=== PATIENT | male | born 1940 | race Caucasian/White ===

== ENCOUNTER 2020-01-15 16:12 | Observation (INO) | payer MEDICARE, OTHER ==
--- NOTE | 2020-01-15 16:50 | RAD ---
Chest AP view INDICATION: Dyspnea COMPARISON: None FINDINGS: Lungs: There is mild interstitial and airspace opacity involving the left lung base. There is mild b ronchiectasis seen within this region. Findings are suspicious for focal region of scarring. No consolidation is evident. Cardiac silhouette: The cardiomediastinal silhouette appears within normal limits. Pulmonary vasculature: Normal Pleural spaces: No pleural effusion or pneumothorax is demonstrated. Upper abdomen: No abnormality seen. Osseous structures: No acute osseous abnormality. Additional findings: None. IMPRESSION: No acute cardiopulmonary abnormality.
[2020-01-15 16:56] LABS: #Lymphocytes 0.7 thou/uL (1.20-3.40); #Monocytes 0.5 thou/uL (0.11-0.59); #Neutrophils 2.5 thou/uL (1.40-6.50); %Basophils 0.8 % (0.0-1.0); %Eosinophils 0.1 % (0.0-10.0); %Lymphocytes 17.9 % (21.0-51.0); %Monocytes 13.7 % (0.0-10.0); %Neutrophils 67.5 % (42.0-75.0); Hemoglobin 13.7 g/dL (14.0-18.0); Mean Platelet Volume 7.5 fL (7.4-10.4); Platelet Count 173 thou/uL (130-400); RBC Distribution Width 11.7 % (11.5-14.5); Red Blood Cell (RBC) Count 4.27 mill/uL (4.70-6.10); White Blood Cell (WBC) Count 3.7 thou/uL (4.8-10.8)
[2020-01-15 17:23] LABS: ALT (SGPT) 25 U/L (8-55); AST (SGOT) 42 U/L (5-34); Albumin 3.3 g/dL (3.4-4.8); Alkaline Phosphatase 57 U/L (40-110); Anion Gap 13 mmol/L (10-20); BUN (Urea Nitrogen) 18 mg/dL (8.4-25.7); Bilirubin, Total 0.3 mg/dL (0.2-1.2); Calc. Creatinine Clearance 0 mL/min (70-130); Carbon Dioxide 21 mmol/L (23-31); Chloride 101 mmol/L (98-107); Estimated GFR-MDRD 56; Globulin 2.1 g/dL (2.4-3.5); Glucose 98 mg/dL (83-110); Potassium 4.2 mmol/L (3.5-5.1); Protein, Total 5.4 g/dL (5.8-8.1); Sodium 131 mmol/L (136-145)
[2020-01-15 17:37] LABS: CKMB 3.7 ng/mL (0-6.6)
--- NOTE | 2020-01-15 18:33 | PDOC.FPRHP ---
- History of Present Illness Chief Complaint: SOB History of Present Illness: 79 yo M with history of COPD and recent covid exposure complaining of SOB, dyspnea on exertion, and fatigue for several days. Patient reports a fever of 100.8 at home. Patient also complains of nonproductive cough which is normal for him due to his COPD. Of note, patient's recently and the is tomorrow. Denies CP and any history of heart, kidney, or liver disease. ED Course: was found to have a troponin of 0.036 - Allergies/Adverse Reactions Allergies Allergy/AdvReac Type Severity Reaction Status Date / Time bacitracin Allergy Unverified 01/15/20 19:19 [From Triple Antibiotic] neomycin Allergy Unverified 01/15/20 19:19 [From Triple Antibiotic] polymyxin B Allergy Unverified 01/15/20 19:19 [From Triple Antibiotic] - Home Medications Medication Instructions Recorded Confirmed Type Escitalopram Oxalate [Lexapro] 10 mg PO DAILY 01/15/20 01/15/20 History Tamsulosin HCl 0.4 mg PO DAILY 01/15/20 01/15/20 History - History PMHx: COPD, BPH PSHx: None Social: previous smoker, quit 30 years ago. Smoked 2PPD for 30 years. Denies alcohol or drug use. - Review of Systems General: reports: fever/chills ENT: denies: nasal congestion Respiratory: reports: cough, shortness of breath. denies: congestion Cardiovascular: reports: chest pain. denies: palpitation, edema Gastrointestinal: denies: abdominal pain Genitourinary: denies: dysuria Musculoskeletal: denies: swelling Neurological: reports: weakness Psychological: reports: depression - Vital signs BP: 120/67 HR: 78 RR: 17 Tmax: 99.3 Pox: 97% on RA Wt: 66kg - Physical Exam Constitutional: NAD, awake, alert and oriented HEENT: normocephalic and atraumatic, EOMI, grossly normal vision, grossly normal hearing Neck: supple, FROM Heart: RRR, no murmurs/rubs/gallops, no edema -Heart: distant heart sounds Lungs: CTAB, no respiratory distress, good air movement, no rales/rhonchi, no wheezing, no retractions Abdomen: soft, non-tender Musculoskeletal: normal structure, normal tone, ROM grossly normal Neurological: no focal deficit Psychiatric: good judgment and insight, intact recent and remote memory FMR H&P: Results - Labs Result Diagrams: 01/15/20 16:47 01/15/20 16:47 Lab results: WBC 3.7 thou/uL (4.8-10.8) L 01/15/20 16:47 Hgb 13.7 g/dL (14.0-18.0) L 01/15/20 16:47 Hct 40.1 % (42.0-52.0) L 01/15/20 16:47 MCV 94.0 fL (78.0-98.0) 01/15/20 16:47 Plt Count 173 thou/uL (130-400) 01/15/20 16:47 Neutrophils % 67.5 % (42.0-75.0) 01/15/20 16:47 Sodium 131 mmol/L (136-145) L 01/15/20 16:47 Potassium 4.2 mmol/L (3.5-5.1) 01/15/20 16:47 Chloride 101 mmol/L (98-107) 01/15/20 16:47 Carbon Dioxide 21 mmol/L (23-31) L 01/15/20 16:47 BUN 18 mg/dL (8.4-25.7) 01/15/20 16:47 Creatinine 1.23 mg/dL (0.7-1.3) 01/15/20 16:47 Glucose 98 mg/dL (83-110) 01/15/20 16:47 Calcium 8.0 mg/dL (7.8-10.44) 01/15/20 16:47 Total Bilirubin 0.3 mg/dL (0.2-1.2) 01/15/20 16:47 AST 42 U/L (5-34) H 01/15/20 16:47 ALT 25 U/L (8-55) 01/15/20 16:47 Alkaline Phosphatase 57 U/L (40-110) 01/15/20 16:47 CK-MB (CK-2) 3.7 ng/mL (0-6.6) 01/15/20 16:47 B-Natriuretic Peptide 266.3 pg/mL (0-100) H 01/15/20 16:47 Serum Total Protein 5.4 g/dL (5.8-8.1) L 01/15/20 16:47 Albumin 3.3 g/dL (3.4-4.8) L 01/15/20 16:47 - EKG Interpretation EKG: sinus rhythm - Radiology Interpretation Chest x-ray Status: report reviewed by me (no acute cardiopulmonary process) FMR H&P: A/P - Plan 79 yo M with history of COPD and recent covid exposure complaining of SOB, dyspnea on exertion, and fatigue Elevated troponin -trop 0.036 -EKG sinus rhythm -CXR normal -trend trops -consider stress in AM if patient is covid negative COVID PUI -Known exposure. SOB, fatigue, dyspnea on exertion -COVID test pending -Mg, Phos, Ddimer, CRP, INR, PTT, fibrinogen, ferritin, LDH pending -BCx pending -Urine antigens pending Leukopenia -WBC 3.7 -likely due to covid COPD -Aware, lungs clear on admission -Will med rec inhalers BPH -Aware -Continue home meds Depression - recently and is on 01/14 -Continue home meds DVT PPx: lovenox Diet: HH, NPO at midnight Code: Full [facility]CP: [facility] Dispo: eLOS<48hours pending trending of troponins and results of covid test FMR H&P: Upper Level - Plan Date/Time: 01/15/201832 Arnold Martinez DO, have evaluated this patient and agree with findings/plan as outlined by materials intern resident. Pertinent changes/additions are listed here. 79 yo m w pmhx sig for copd presents with fever, fatigue and sob for 2 days he reports positive covid contacts, denies a change in his chronic cough, or increased sputum production. he has not had any chest pain and denies a hx of heart disease. in the ED he was noted to have an indeterminate trop and elevated bnp, ekg wnl, cxr neg for volume overload or infiltrates. vss, pe sig for distant heart sounds, lungs ctab, abd nttp, no EVELYN. we will admit to tele obs for further monitoring. acs ro w. concern for covid pna, trend trop and consider stress/echo if covid neg. if positive he is not requiring O2 and will most likely be able to be dc'd home to quarantine. will obtain routine covid labs, avoid treating at this time as he is not requiring admission for covid related complications. Addendum - Attending - Attending Attestation Date/Time: 01/15/20 [id number] I personally evaluated the patient and discussed the management with Dr. Hurtado/Reece. I agree with the History, Examination, Assessment and Plan documented above with any addition or exceptions noted below. Obs for covid exposure with early symptoms and indeterminate troponin.
[2020-01-15] MEDS ORDERED: Acetaminophen 325 MG TAB PO PRN (19:02)
[2020-01-15] MEDS ORDERED: Acetaminophen 650 MG Suppository PR PRN (19:02)
[2020-01-15 19:50] LABS: PTT 31.6 sec (22.9-36.1)
[2020-01-15 19:51] LABS: D-Dimer Test 0.46 *mcg/mL (0.27-0.43)
[2020-01-15 20:04] LABS: CRP (Inflammatory) 5.35 mg/dL (= or < 0.5); Cardiac Risk 3.5 (Less than 4.5); Cholesterol 134 mg/dl (< 200 Desired); HDL Cholesterol 38 mg/dL (>60 Neg Risk); LDL Cholesterol, Calculated 87 mg/dL; Magnesium 1.7 mg/dL (1.6-2.6); Phosphorus 3.1 mg/dL (2.3-4.7); Triglycerides 44 mg/dL (Less than 150)
[2020-01-15 20:20] LABS: Troponin I 0.029 ng/mL (< 0.028)
[2020-01-15] MEDS ORDERED: Enoxaparin Sodium 40 MG/0.4 ML SYRINGE SC SCH (21:00)
[2020-01-15 22:38] LABS: SARS-CoV-2 NAA Rapid Test DETECTED (NotDetected)
[2020-01-15 23:38] VITALS: BMI 23.8
[2020-01-15] MEDS ORDERED: Dexamethasone 4 mg/ml Vial SLOW IVP SCH (23:45)
[2020-01-15] MEDS ORDERED: Tamsulosin HCl 0.4 MG CAP PO SCH (23:59)
[2020-01-16 00:03] LABS: Troponin I 0.023 ng/mL (< 0.028)
[2020-01-16 02:11] LABS: Legionella Urinary Ag Negative (Negative); Strep pneumo Urine Ag NEGATIVE (NEGATIVE)
[2020-01-16 05:10] LABS: #Lymphocytes 0.4 thou/uL (1.20-3.40); #Monocytes 0.1 thou/uL (0.11-0.59); %Basophils 0.6 % (0.0-1.0); %Eosinophils 0.4 % (0.0-10.0); %Lymphocytes 16.7 % (21.0-51.0); %Monocytes 4.5 % (0.0-10.0); %Neutrophils 77.9 % (42.0-75.0); Hemoglobin 13.3 g/dL (14.0-18.0); Mean Corpuscular HGB CONC 35.6 g/dL (32.0-36.0); Mean Corpuscular Hemoglobin 33.6 pg (27.0-31.0); Mean Corpuscular Volume 94.3 fL (78.0-98.0); Platelet Count 162 thou/uL (130-400); RBC Distribution Width 11.6 % (11.5-14.5); Red Blood Cell (RBC) Count 3.97 mill/uL (4.70-6.10); White Blood Cell (WBC) Count 2.5 thou/uL (4.8-10.8)
[2020-01-16 05:32] LABS: Anion Gap 13 mmol/L (10-20); BUN (Urea Nitrogen) 15 mg/dL (8.4-25.7); CRP (Inflammatory) 4.59 mg/dL (= or < 0.5); Calc. Creatinine Clearance 59 mL/min (70-130); Calcium 8.1 mg/dL (7.8-10.44); Carbon Dioxide 22 mmol/L (23-31); Chloride 101 mmol/L (98-107); Estimated GFR-MDRD 69; Glucose 119 mg/dL (83-110); Magnesium 1.8 mg/dL (1.6-2.6); Phosphorus 2.9 mg/dL (2.3-4.7); Potassium 4.2 mmol/L (3.5-5.1); Sodium 132 mmol/L (136-145)
--- NOTE | 2020-01-16 06:14 | PDOC.FM ---
- Subjective Subjective: Patient doing well, not requiring any oxygen, denies dyspnea or cough. Denies chest pain. - Objective Vital Signs & Weight: Vital Signs (12 hours) Temp Pulse Pulse Resp BP BP Pulse Ox 01/16/20 05:25 93 L 01/16/20 03:12 99.2 F 77 20 119/59 L 93 L 01/16/20 01:22 100.3 F H 01/16/20 01:20 100.3 F H 75 20 118/59 L 90 L 01/15/20 23:30 98.9 F 66 14 137/63 97 01/15/20 19:03 97 Weight Weight 75.3 kg I&O: 01/14/20 01/15/20 01/16/20 06:59 06:59 06:59 Intake Total 214 Balance 214 Result Diagrams: 01/16/20 04:43 01/16/20 04:43 Phys Exam - Physical Examination Constitutional: NAD HEENT: moist MMs, sclera anicteric Neck: supple, full ROM Respiratory: no wheezing, clear to auscultation bilateral Cardiovascular: RRR, no significant murmur Gastrointestinal: soft, no distention Musculoskeletal: no edema Neurological: non-focal, moves all 4 limbs Psychiatric: normal affect Skin: no rash, normal turgor Dx/Plan (1) Pneumonia due to COVID-19 virus Code(s): U07.1 - COVID-19; J12.89 - OTHER VIRAL PNEUMONIA Status: Acute (2) COPD (chronic obstructive pulmonary disease) Status: Acute (3) Elevated troponin Code(s): R77.8 - OTHER SPECIFIED ABNORMALITIES OF PLASMA PROTEINS Status: Acute - Plan Plan: 79 yo M with history of COPD and recent covid exposure complaining of SOB, dyspnea on exertion, and fatigue #COVID PUI -Known exposure. SOB, fatigue, dyspnea on exertion on admission; denies dyspnea this am. -COVID test positive -CXR neg -BCx pending -Urine antigens pending #Elevated troponin, resolved -trop 0.036>0.029>0.023 -EKG sinus rhythm -CXR normal -trops trended down -can consider stress test outpatient #Leukopenia -WBC 3.7>2.5 -likely due to covid #COPD -Aware, lungs clear on admission -does not require O2 at home; reportedly takes symbicort and proair at home, will re-start symbicort #BPH -Aware -Continue home meds #Depression - recently and was on 01/15, delayed -Continue home meds DVT PPx: lovenox Diet: HH Code: Full PCP: [facility] Dispo: monitor respiratory status; possible discharge later today Addendum - Attending - Attending Attestation Date/Time: 01/16/20 [id number] I personally evaluated the patient and discussed the management with Dr. Euceda I agree with the History, Examination, Assessment and Plan documented above with any addition or exceptions noted below - Patient denies any complaints. No SOB or cough. Tm100.3 VSS. A/P: 1) COVID pneumonia- currently mild with no O2 requirement. Plan to d/c home with return precautions and instructions to isolate for 10 days.
[2020-01-16] MEDS ORDERED: Mometasone 200 MCG/Formoterol 5 MCG 120 PUFF INHALER INH SCH ×2 (07:45→18:30)
[2020-01-16] MEDS ORDERED: Enoxaparin Sodium 40 MG/0.4 ML SYRINGE SC SCH ×3 (09:00)
[2020-01-16] MEDS ORDERED: Escitalopram Oxalate 10 mg Tablet PO SCH (09:00)
[2020-01-16] MEDS ORDERED: Tamsulosin HCl 0.4 MG CAP PO SCH ×2 (09:00→21:00)
[2020-01-16] MEDS ORDERED: Dexamethasone 4 mg/ml Vial SLOW IVP SCH ×2 (09:00)
[2020-01-16 12:28] VITALS: BP 120/63; TEMP 98
--- NOTE | 2020-01-17 11:07 | DIS ---
DATE OF ADMISSION: 01/15/2020 DATE OF DISCHARGE: 01/16/2020 RESIDENT: Anupama Euceda MD ADMITTING ATTENDING: Kirit Dobson MD DISCHARGE ATTENDING: Carla Holliday MD CONSULTS: None. PROCEDURE: Convalescent plasma 1 unit administered on 01/16/2020. PRIMARY DIAGNOSES: 1. COVID pneumonia. 2. Elevated troponin. 3. Leukopenia. SECONDARY DIAGNOSES: 1. Chronic obstructive pulmonary disease. 2. BPH. 3. Depression. DISCHARGE MEDICATIONS: 1. Lexapro 10 mg p.o. daily. 2. Symbicort. 3. Tamsulosin 0.4 mg p.o. at bedtime. 4. Alprazolam 0.5 mg p.o. q.8 hours p.r.n. 5. Azithromycin 250 mg p.o. daily. 6. Cefdinir 300 mg p.o. b.i.d. DISCONTINUED MEDICATIONS: 1. Dexamethasone 6 mg daily. 2. Lovenox. HISTORY OF PRESENT ILLNESS/HOSPITAL COURSE: The patient is an 79-year-old male with a history of COPD and recent COVID exposure who presented to the ED complaining of dyspnea on exertion and fatigue for several days along with a fever of 100.8 at home and nonproductive cough. The patient's had recently and many of the family members have become recently sick with COVID. He was admitted to the hospital and COVID tested, which came back positive. The original D-dimer was 0.46 and downtrended to 0.39. His C-reactive protein was 5.35, it downtrended to 4.59. His ferritin was 181, which was normal. His LDH was 209, which was normal. When the patient presented to the hospital, he was also found to have an elevated troponin of 0.036, never became positive and downtrended to 0.023 after three troponins. His cholesterol demonstrated a total cholesterol of 134, LDL cholesterol of 187, HDL of 38, triglycerides of 44. He was admitted to the hospital for observation for his respiratory status. Originally, it was decided that he would have a stress test in the morning, but as COVID test did come back positive, I recommended that this be done on an outpatient basis. The patient briefly required oxygen during the night of his hospital stay, but his oxygen saturation never dipped below 90%, and with his history of COPD, it was felt that this was normal. Upon examination on the day of discharge, he was saturating between 94% to 95% on room air and was not tachypneic or tachycardic and was stable in bed. It was discussed with the patient that he should quarantine for 10 days since symptom onset upon discharge and to carefully monitor his symptoms and return for evaluation if he begins to have worsening dyspnea as this is the beginning of his COVID course. The patient is agreeable with this plan of care and was agreeable with being discharged today. DISCHARGE INSTRUCTIONS: 1. Location: Home. 2. Diet: Heart healthy. 3. Activity: As tolerated with home quarantine for 10 days. 4. Follow up with PCP in 7 to 10 days and follow up for a cardiac stress test outpatient. Job ID: [id number]
--- NOTE | 2020-01-18 15:33 | EKG ---
Test Reason : WEAKNESS Blood Pressure : / mmHG Vent. Rate : 072 BPM Atrial Rate : 072 BPM P-R Int : 150 ms QRS Dur : 080 ms QT Int : 382 ms P-R-T Axes : 037 004 048 degrees QTc Int : 418 ms Sinus rhythm with occasional Premature ventricular complexes Septal infarct , age undetermined Abnormal ECG Confirmed by LAUREN SALOMON ([id number]), news video editor YESENIA ARAYA ([id number]) on 01/18/2020 3:32:55 PM Referred By: SABINE Confirmed By:LAUREN [place]
== END 2020-01-16 17:00 | disposition home or self-care (01) ==
LOC: ERS 16:12 → 2SW 18:45
PROVIDERS: ADMIT Family Medicine; ATTEND Family Medicine
DX: U07.1 COVID-19 (principal); J12.89 Other viral pneumonia; R77.8 Other specified abnormalities of plasma proteins; D72.819 Decreased white blood cell count, unspecified; J44.9 Chronic obstructive pulmonary disease, unspecified; N40.0 Benign prostatic hyperplasia without lower urinary tract symptoms; F32.9 Major depressive disorder, single episode, unspecified; F41.9 Anxiety disorder, unspecified; Z87.891 Personal history of nicotine dependence; Z79.1 Long term (current) use of non-steroidal anti-inflammatories (NSAID); Z79.899 Other long term (current) drug therapy; Z88.1 Allergy status to other antibiotic agents
CPT/HCPCS: 36430; 71045; 80048; 80053; 80061; 82553; 82728; 83615; 83735 ×2; 83880; 84100 ×2; 84145; 84484 ×2; 85025 ×2; 85379 ×2; 85384; 85610; 85730; 86140 ×2; 86850; 86900; 86901; 87040; 87449; 87899; 93005; 94760 ×2; 96372; 96374; 96376; 99285; G0378 ×3; P9017; U0002; 36415; J1100; J1650